=== PATIENT | male | born 1965 | race Caucasian/White ===

== ENCOUNTER 2017-07-04 05:19 | Day surgery (SDC) | payer OTHER ==
[2017-07-01 10:09] LABS: HEMATOCRIT 41.7 % (42.0-54.0); HEMOGLOBIN 13.8 g/dL (13.5-17.5); MCH 32.1 pg (26.0-34.0); MCHC 33.1 g/dL (31.0-37.0); MEAN PLATELET VOLUME 9.9 fL (7.4-10.4); RBC 4.3 10x6/uL (4.20-6.10); RDW 12.7 % (11.5-14.5); WBC 6.7 10x3/uL (4.8-10.8)
[~2017-07-04] VITALS: Ht 170.2 cm; Wt 95.7 kg
[~2017-07-04 05:19] MED LIST: DEPAKOTE500 MG PO; FLAXSEED OIL1000 MG PO; LISINOPRIL10 MG PO; MAXALT10 MG PO; NORCO 7.5/325 T1 TA1 PO; PROPRANOLOL HCL20 MG PO; VITAMIN C1000 MG PO; XANAX0.25 MG PO; ZINC50 MG PO
[2017-07-04] MEDS ORDERED: PHENERGAN25 M1 (08:50)
[2017-07-04] MEDS ORDERED: [UNRECOGNIZED DRUG - OTHER] (08:50)
[2017-07-04] MEDS ORDERED: VALTREX1000 MG PO (08:50)
[2017-07-04 08:59] VITALS: BP 114/80; Ht 170.2 cm; Wt 95.7 kg
[2017-07-04] MEDS ORDERED: MIRALAX17 GM PO (11:28)
--- NOTE | 2017-07-04 11:55 | NUR ---
PT REC'D TO ROOM VIA STRETCHER. AWAKE, DROWSY.
--- NOTE | 2017-07-04 12:26 | NUR ---
PT C/O ITCHING. ORDER REC'D FROM CORINNE FOLEY CRNA. BENADRYL 25 MG IV GIVEN.
--- NOTE | 2017-07-04 13:00 | NUR ---
PT CONSUMED FULL LIQ. C/O NAUSEA.
--- NOTE | 2017-07-04 13:05 | NUR ---
ZOFRAN 4 MG IV GIVEN.
--- NOTE | 2017-07-04 13:36 | OP ---
PATIENT NAME: SARA ZAPATA MEDICAL RECORD: [id number] :69 LOCATION:D.OPS ADMISSION DATE: SURGEON: DIANA NUNEZ MD DATE OF OPERATION: 07/04/2017 SURGEON: Diana Nunez MD (JJ) PREOPERATIVE DIAGNOSES: 1. Bleeding internal hemorrhoids. 2. Painless rectal bleeding. POSTOPERATIVE DIAGNOSES: 1. Bleeding internal hemorrhoids. 2. Painless rectal bleeding. PROCEDURES PERFORMED: 1. Rectal examination under anesthesia. 2. Internal hemorrhoid banding times 2. ANESTHESIA: General. COMPLICATIONS: None. SPECIMENS: None. Case was contaminated. OPERATIVE COURSE: After consent was obtained, the patient was taken to the operating room and placed in the supine position on the operating table. Next, general anesthesia was given. Next, a time-out was taken to confirm correct patient and procedure. The patient was then placed into the lithotomy position. The perineum was prepped and draped in typical sterile fashion. Digital rectal exam was performed. There was no external hemorrhoid identified. The rectum was serially dilated using the [employer] retractors. Internal hemorrhoid banding was then performed on the left lateral column and the right posterior column. A 30 cc of local anesthetic was injected circumferentially in a perineal block prior to internal hemorrhoid banding. Once the internal banding was complete, the rectum was packed with [place] and [place]. At the end of the case, all needle and instrument counts were correct. No complications occurred. The patient tolerated the procedure well and postoperatively was transferred to the PACU in stable condition. TRANSINT:[id number] Voice Confirmation ID: [id number] DOCUMENT ID: [id number] OPERATIVE REPORT [id number] SARA ZAPATA DIANA NUNEZ MD at 1336 CC: [id number] DICTATION DATE: 07/04/17 1127 MOTO MIX OPERATOR: 07/04/17 1202 [id number] [place] [address]
--- NOTE | 2017-07-04 13:42 | NUR ---
PT UP TO BR TO ATTEMPT TO VOID.
--- NOTE | 2017-07-04 13:57 | NUR ---
PT UNABLE TO VOID. DR. NUNEZ ADVISED. ORDER REC'D.
--- NOTE | 2017-07-04 14:16 | NUR ---
FLOMAX GIVEN ORDERED. PT UP AMBULATING ABOUT ROOM.
--- NOTE | 2017-07-04 14:59 | NUR ---
PT UP TO BR TO ATTEMPT TO VOID.
--- NOTE | 2017-07-04 16:11 | NUR ---
PT STILL UNABLE TO VOID. BLADDER SCAN 235ML. BEEPED DR. NUNEZ TO ADVISE OF STATUS.
--- NOTE | 2017-07-04 16:35 | NUR ---
DR. NUNEZ RET'S CALL. ADVISED OF STATUS. ORDER REC'D.
--- NOTE | 2017-07-04 16:41 | NUR ---
PT UP TO BR. VOIDED ON OWN.
--- NOTE | 2017-07-04 16:45 | NUR ---
IV D/C'D CATH INTACT. D/C INSTRUCTIONS EXPLAINED TO PT. VOICED UNDERSTANDING. COPIES OF ALL GIVEN.
--- NOTE | 2017-07-04 16:55 | NUR ---
D/C'D HOME VIA W/C TO PRIVATE CAR.
== END 2017-07-04 16:55 | disposition home or self-care (01) ==
LOC: D.OPS 05:19 → D.PAN 09:30 → D.OPS 10:15 → D.PAN 10:15 → D.OPS 10:30 → D.PAN 11:15 → D.OPS 11:15
PROVIDERS: Anesthesiology
DX: K64.8 Other hemorrhoids (principal); K62.5 Hemorrhage of anus and rectum; I10 Essential (primary) hypertension; Z01.812 Encounter for preprocedural laboratory examination

== ENCOUNTER 2020-01-28 05:09 | Emergency (ER) | payer OTHER ==
[~2020-01-28] VITALS: Ht 170.2 cm; Wt 96.8 kg
[~2020-01-28 05:09] MED LIST changes: +MIRALAX17 GM PO; +PHENERGAN25 M1; +VALTREX1000 MG PO; +[UNRECOGNIZED DRUG - OTHER] PO
[2020-01-28 05:16] VITALS: Ht 170.2 cm; Wt 96.8 kg
[2020-01-28] MEDS ORDERED: CYMBALTA30 MG PO (05:48)
[2020-01-28 05:51] LABS: HEMATOCRIT 39.1 % (42.0-54.0); LYMPHOCYTES 11.2 % (15-50); MCHC 33.2 g/dL (31.0-37.0); MCV 93.3 fL (80.0-100.0); MEAN PLATELET VOLUME 9.6 fL (7.4-10.4); NEUTROPHILS 80.2 % (40-80); PLATELET COUNT 246 10x3/uL (130-400); RBC 4.19 10x6/uL (4.20-6.10); RDW 12.8 % (11.5-14.5); WBC 9.1 10x3/uL (4.8-10.8)
[2020-01-28 06:21] LABS: CALC OSMOLALITY 282 mosm/kg (275-300); CARBON DIOXIDE 30.1 mmol/L (21.0-32.0); CHLORIDE - SERUM 105 mmol/L (98-107); GLUCOSE 136 mg/dL (74-106); POTASSIUM - SERUM 3.8 mmol/L (3.5-5.1); SODIUM 142 mmol/L (136-145); UREA NITROGEN 7 mg/dL (7-18); eGFR NON AFRICAN AMERICAN 83 mL/min (90-120)
[2020-01-28 08:11] LABS: BILIRUBIN NEGATIVE (NEGATIVE); GLUCOSE NEGATIVE (NEGATIVE); KETONE NEGATIVE (NEGATIVE); NITRITE NEGATIVE (NEGATIVE); SPECIFIC GRAVITY 1.015 (1.005-1.020); UROBILINOGEN NORMAL (NORMAL)
[2020-01-28 08:12] LABS: BACTERIA FEW /hpf (NEGATIVE); EPITHELIAL CELLS OCC /hpf (0-5); RED CELLS - URINE 25-50 /hpf (0-5); WHITE CELLS - URINE RARE /hpf (NEGATIVE)
[2020-01-28] MEDS ORDERED: FLOMAX0.4 MG PO (08:21)
[2020-01-28] MEDS ORDERED: HYDROCODON-ACE1 EAC7 PO (08:21)
[2020-01-28 08:28] VITALS: BP 164/89
== END 2020-01-28 08:42 | disposition home or self-care (01) ==
LOC: D.ER 05:09
PROVIDERS: Emergency Medicine
DX: N20.1 Calculus of ureter (principal); I10 Essential (primary) hypertension; J45.909 Unspecified asthma, uncomplicated